=== PATIENT | female | born 1985 | race Caucasian/White ===

== ENCOUNTER → 2018-04-29 | Outpatient (REF) | payer BC ==
[2018-05-06 16:39] LABS: HPV LOW VOL RFLX Negative (Negative)
== END ==
LOC: M LAB REF 16:08
PROVIDERS: ATTEND Specialist
DX: Z12.4 Encounter for screening for malignant neoplasm of cervix (principal); Z11.51 Encounter for screening for human papillomavirus (HPV)
CPT/HCPCS: 87624; G0123

== ENCOUNTER → 2019-10-08 | Outpatient (REF) | payer BC ==
[2019-11-26 02:28] LABS: HCG, SERUM QUANTITATIVE < 1.0 MIU/ML; PROGESTERONE 16.07 NG/ML
== END ==
LOC: M LAB REF 11:55
PROVIDERS: ATTEND Obstetrics & Gynecology Reproductive Endocrinology
DX: Z32.00 Encounter for pregnancy test, result unknown (principal)

== ENCOUNTER → 2019-10-28 | Outpatient (REF) | payer BC ==
[2019-10-28 20:42] LABS: ESTRADIOL 38.3 PG/ML
[2019-10-30 15:06] LABS: PROGESTERONE 45.65 NG/ML
== END ==
LOC: M LAB REF 16:47
PROVIDERS: ATTEND Obstetrics & Gynecology Reproductive Endocrinology
DX: E28.9 Ovarian dysfunction, unspecified (principal)

== ENCOUNTER → 2019-11-04 | Outpatient (REF) | payer BC ==
[2019-11-04 18:48] LABS: HCG, SERUM QUANTITATIVE < 1.0 MIU/ML
[2019-11-04 19:02] LABS: PROGESTERONE 13.25 NG/ML
== END ==
LOC: M LAB REF 17:08
PROVIDERS: ATTEND Obstetrics & Gynecology Reproductive Endocrinology
DX: E28.9 Ovarian dysfunction, unspecified (principal)

== ENCOUNTER → 2020-12-21 | Outpatient (REF) | LOC: M EMP 08:14 | PROVIDERS: ATTEND Family Medicine | DX: Z20.822 Contact with and (suspected) exposure to COVID-19 (principal) ==

== ENCOUNTER 2021-02-06 06:30 | Outpatient (RCR) | END 2021-02-06 15:00 | disposition home or self-care (01) | LOC: M EMP 06:30 | PROVIDERS: ATTEND Pediatrics | DX: Z11.52 Encounter for screening for COVID-19 (principal) ==